=== PATIENT | female | born 1960 | race Caucasian/White ===

== ENCOUNTER 2021-01-02 08:15 | Outpatient (CLI) | payer OTHER | END 2021-01-02 23:59 | disposition home or self-care (01) | LOC: CFH 08:15 | PROVIDERS: ATTEND Internal Medicine Cardiovascular Disease | DX: I10 Essential (primary) hypertension (principal); I49.9 Cardiac arrhythmia, unspecified; R07.9 Chest pain, unspecified | CPT/HCPCS: 78452; 93017; A9502 ==